=== PATIENT | female | born 1955 | race Caucasian/White ===

== ENCOUNTER 2017-01-08 09:08 | Day surgery (SDC) | END 2017-01-08 14:10 | disposition home or self-care (01) | DX: Z30.432 Encounter for removal of intrauterine contraceptive device (principal); A42.89 Other forms of actinomycosis; N95.0 Postmenopausal bleeding; I10 Essential (primary) hypertension; E11.9 Type 2 diabetes mellitus without complications | CPT/HCPCS: 58562; 82962; 88300; 88305; J0690; J3010; J7121; Z7512; Z7610 ==